=== PATIENT | male | born 1975 | race Caucasian/White ===

== ENCOUNTER → 2016-11-03 | Outpatient (REF) | payer OTHER | LOC: M SMT 16:47 | PROVIDERS: ATTEND Nurse Practitioner Women's Health | DX: R35.0 Frequency of micturition (principal) | CPT/HCPCS: 81001; 87086; G0463 ==

== ENCOUNTER → 2016-11-10 | Outpatient (CLI) | payer OTHER ==
[~2016-11-10] MED LIST: GASTROGRAFIN SOLUTION 30ML (Q9963) As Ordered ONE; ISOVUE-370 76% 100ML VIAL (Q9967) As Ordered ONE
--- NOTE | 2016-11-10 19:20 | REP ---
CT study of the abdomen and pelvis without and with IV contrast: With oral contrast: History: Low back pain and groin pain. CT contrast dose: 100 mL of Isovue-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 Axial CT images demonstrate that the lung bases are clear. There is no evidence of pleural effusion or upper abdominal ascites. There is a cyst in the left lobe of the liver measuring 1.5 cm in greatest diameter. A smaller cyst is seen a little more superiorly in the left lobe of the liver 0.8 cm in greatest diameter. No other focal liver lesion is seen. There is an accessory splenule inferior and anterior to the spleen. No other splenic abnormality is seen. No adrenal lesion is observed. No pancreatic or gallbladder abnormality is seen. The kidneys enhance symmetrically and are morphologically intact on pre and postcontrast images. No evidence of nephrolithiasis, hydronephrosis, or renal mass lesion. No retroperitoneal mass or adenopathy is observed. Small and large intestinal bowel loops are normal in the abdomen and pelvis. Urinary bladder is intact. Prostate and seminal vesicles are unremarkable. No pelvic mass or adenopathy is seen. Bone window settings show no bony destructive lesion. Synovial inclusion cyst is seen in the left femoral neck. Impression: Simple cysts in the left lobe of the liver. Otherwise unremarkable CT study of the abdomen and pelvis without and with IV contrast. Signed by Derik Patel MD 11/10/2016 07:47 P
== END ==
LOC: M RAD 15:23
PROVIDERS: ATTEND Nurse Practitioner Women's Health
DX: R10.30 Lower abdominal pain, unspecified (principal); M54.5 Low back pain; K76.89 Other specified diseases of liver
CPT/HCPCS: 74178; Q9963; Q9967

== ENCOUNTER → 2017-05-20 | Outpatient (REF) | payer OTHER ==
[~2017-05-20] MED LIST changes: +FLOM5CAP PO; -GASTROGRAFIN SOLUTION 30ML (Q9963) As Ordered ONE; -ISOVUE-370 76% 100ML VIAL (Q9967) As Ordered ONE; +REFR0.1D OU
== END ==
LOC: M SMT 12:52
PROVIDERS: ATTEND Urology
DX: N41.1 Chronic prostatitis (principal)
CPT/HCPCS: 51798; 81001; 87086; G0463

== ENCOUNTER → 2017-06-01 | Outpatient (CLI) | payer OTHER ==
--- NOTE | 2017-06-02 07:32 | REP ---
Clinical: History of benign prostatic hypertrophy. Technique: Real time hinojosa scale ultrasound examination using curved array transducer. Findings: Prevoid bladder appears normal and without wall thickening or mass lesion measuring 342 ml. Bilateral ureteral jets noted. Prostate gland is heterogeneous and measures 3.6 x 4.1 x 4.0 cm (36 ml). Impression: 1. Normal appearance of the bladder. 2. Mild prostatic hypertrophy. Signed by Suleiman Bonilla MD 06/02/2017 07:24 A
== END ==
LOC: M SMT 13:00
PROVIDERS: ATTEND Urology
DX: N40.1 Benign prostatic hyperplasia with lower urinary tract symptoms (principal)

== ENCOUNTER → 2017-08-06 | Outpatient (CLI) | payer OTHER ==
[2017-08-06 14:53] LABS: MEAN CORPUSCULAR HEMOGLOBIN 30.6 pg (27.0-33.0); MEAN CORPUSCULAR HGB CONC 35.7 g/dl (32.0-36.5); MEAN CORPUSCULAR VOLUME 85.7 fl (80.0-96.0); PLATELET COUNT, AUTOMATED 197 10^3/uL (150-450); RED CELL DISTRIBUTION WIDTH 11.9 % (11.5-14.5); WHITE BLOOD COUNT 7.2 10^3/uL (4.0-10.0)
[2017-08-06 15:04] LABS: INR 0.96
[2017-08-06 15:21] LABS: ANION GAP 7 MEQ/L (8-16); BLOOD UREA NITROGEN 15 MG/DL (7-18); CALCIUM LEVEL 8.4 MG/DL (8.5-10.1); CARBON DIOXIDE LEVEL 29 MEQ/L (21-32); CHLORIDE LEVEL 106 MEQ/L (98-107); CREATININE FOR GFR 1.25 MG/DL (0.70-1.30); GLOMERULAR FILTRATION RATE > 60.0 (>60); GLUCOSE, FASTING 83 MG/DL (70-105); POTASSIUM SERUM 4.3 MEQ/L (3.5-5.1); SODIUM LEVEL 142 MEQ/L (136-145)
== END ==
LOC: M SMT 11:28
PROVIDERS: ATTEND Urology
DX: N40.1 Benign prostatic hyperplasia with lower urinary tract symptoms (principal)

== ENCOUNTER 2017-08-13 08:53 | Day surgery (SDC) | payer OTHER ==
[~2017-08-13] VITALS: Ht 172.7 cm; Wt 87.5 kg
[2017-08-13] MEDS ORDERED: LR 1,000 ML IV ONE (09:00)
[2017-08-13] MEDS ORDERED: PROPOFOL 200 MG/20 ML VIAL As Ordered ONE (10:44)
[2017-08-13] MEDS ORDERED: LIDOCAINE 2% INJ 100 MG/5 ML SDV (FOR ANES.) As Ordered ONE (10:44)
[2017-08-13] MEDS ORDERED: MIDAZOLAM INJ 2 MG/2 ML VIAL (J2250) As Ordered ONE (10:46)
[2017-08-13] MEDS ORDERED: fentaNYL 100 MCG/2 ML INJECTION (J3010) As Ordered ONE (10:47)
[2017-08-13] MEDS ORDERED: LIDOCAINE 2% 5ML JELLY UROJET As Ordered ONE (11:17)
[2017-08-13] MEDS ORDERED: CIPR500T3 PO (12:01)
[2017-08-13] MEDS ORDERED: TYLE650T35 PO (12:01)
[2017-08-13 12:45] VITALS: BP 133/89
[2017-08-13] MEDS ORDERED: METOCLOPRAMIDE INJ 10MG/2ML VIAL (J2765) IV PRN (12:45)
[2017-08-13] MEDS ORDERED: LR 1,000 ML IV SCH (12:45)
[2017-08-13] MEDS ORDERED: ONDANSETRON 4MG/2ML VIAL (J2405) IV PRN (12:45)
[2017-08-13] MEDS ORDERED: MEPERIDINE INJ 25 MG/ML VIAL (J2175) IV PRN (12:45)
[2017-08-13] MEDS ORDERED: PERCOCET 5MG/325MG TAB PO PRN (12:45)
[2017-08-13] MEDS ORDERED: fentaNYL 100 MCG/2 ML INJECTION (J3010) IV PRN (12:45)
--- NOTE | 2017-08-14 09:46 | RO ---
DATE OF PROCEDURE: 08/13/2017 PREPROCEDURE DIAGNOSIS: Benigni prostatic hypertrophy with urine obstruction plus lower urinary tract symptoms (LUTS). POSTPROCEDURE DIAGNOSIS: Benigni prostatic hypertrophy with urine obstruction plus lower urinary tract symptoms (LUTS). PROCEDURE: UroLift prostatic urethral lift. A total of four implants. SURGEON: Dr. Brian Morales. GLASS MOULD CLEANER: ANESTHESIA: MAC COMPLICATIONS: None. ESTIMATED BLOOD LOSS: Minimal. INDICATION: This is a 41-year-old male patient that has lower urinary tract symptoms due to benign prostatic hypertrophy. The patient has consented for a cystoscopy plus UroLift prostatic urethral lift implant after failing medical therapy. DESCRIPTION OF PROCEDURE: The patient under MAC anesthesia in the supine modified low lithotomy position, after prepping and draping the area of concern which included the entire genitalia and abdomen. We started by introducing a total of 10 mL of lidocaine gel urojet through the urethra. We waited for 10 minutes and then proceeded to do a formal cystoscopy with a #20-Thai cystoscope that was inserted into the bladder. The fossa navicularis, penile urethra, bulbar urethra and membranous urethra and prostatic urethra were totally normal. The bladder had no tumors. No stones. No foreign objects. Both ureteral orifices were seen excreting clear urine. The cystoscope bridge was replaced with the UroLift delivery device. The first treatment site was the patient's left side. Approximately 2 cm distal to the bladder neck, the distal tip of the delivery device was then angled laterally approximately 20 degrees at this position to compress the lateral lobe at 3 -o'clock position. The trigger was pulled, thereby deploying a needle containing the implant through the prostate. The needle was then retracted allowing one end of the implant to be positioned and delivered to the capsular surface of the prostate. The implant was then tensioned to assure capsular seating and removal of the slack monofilament. The device was then angled back toward the midline and slowly advanced proximally typically 3-4 mm until cystoscopic verification of the monofilament being centered into the delivery bay. The urethral end piece was affixed to the monofilament thereby tailoring the size of the implant. Excess filament was then severed. The delivery device was then advanced into the bladder. The delivery device was then replaced with a cystoscope and bridge and the implant location and opening affect was confirmed cystoscopically. The same procedure was then performed on the right side at 9 -o'clock position. Two additional implants were delivered just proximal tot he verumontanum. Again, one on the right and one on the left of the prostate. This time at 10 and 2 -o'clock positions following the same technique. Cystoscopy then revealed no persistent area of obstruction and there was no need for delivering more implants. At that moment, a final cystoscopy was conduced first to inspect the location and state of each implant, and second to confirm the presence of a continuous anterior channel that was present throughout the prostatic urethra with irrigation flow turned off. The bladder was then filled with 150 mL irrigation fluid to assist the patient in a voiding trial after the procedure and all the instruments were removed. The patient was then passed to recovery room. There was no Pizano catheter placed. PLAN: The patient passed into recovery room. He will go home after voiding and verifying with the bladder scan that he has emptied his bladder. He will go home with ciprofloxacin 500 mg one tablet by mouth twice a day for 10 days and he will have Tylenol 650 mg extended relief one tablet by mouth every 8 hours as needed for pain. He will followup at [facility] in about 2 weeks.
== END 2017-08-13 12:55 | disposition home or self-care (01) ==
LOC: M SDC 08:53
PROVIDERS: ATTEND Urology
DX: N40.1 Benign prostatic hyperplasia with lower urinary tract symptoms (principal); G47.30 Sleep apnea, unspecified
CPT/HCPCS: 36415; 52441; 52442; 86850; 86900; 86901; J0690; J2250; J3010; L8699

== ENCOUNTER → 2017-08-27 | Outpatient (REF) | payer OTHER ==
[~2017-08-27] MED LIST changes: +CIPR500T3 PO; +TYLE650T35 PO
== END ==
LOC: M SMT 12:47
PROVIDERS: ATTEND Nurse Practitioner Women's Health
DX: N40.1 Benign prostatic hyperplasia with lower urinary tract symptoms (principal)

== ENCOUNTER → 2017-10-01 | Outpatient (REF) | payer OTHER ==
[2017-10-01 12:16] LABS: APPEARANCE, URINE CLEAR (CLEAR); BACTERIA, URINE AUTO NEGATIVE (NEGATIVE); BILIRUBIN, URINE AUTO NEGATIVE (NEGATIVE); BLOOD, URINE BLOOD NEGATIVE (NEGATIVE); COLOR, URINE YELLOW (YELLOW); GLUCOSE, URINE (UA) AUTO NEGATIVE (NEGATIVE); KETONE, URINE AUTO NEGATIVE (NEGATIVE); LEUKOCYTE ESTERASE, URINE AUTO NEGATIVE (NEGATIVE); MUCUS, URINE SMALL (NEGATIVE); NITRITE, URINE AUTO NEGATIVE (NEGATIVE); PROTEIN, URINE AUTO NEGATIVE (NEGATIVE); RBC, URINE AUTO 0 /HPF (0-3); SPECIFIC GRAVITY URINE AUTO 1.009 (1.002-1.035); SQUAMOUS EPITHELIAL CELL UR AU 0 /HPF (0-6); UROBILINOGEN, URINE AUTO 0.2 mg/dL (0.0-2.0); WBC, URINE AUTO 1 /HPF (0-3)
== END ==
LOC: M SMT 11:42
DX: N40.1 Benign prostatic hyperplasia with lower urinary tract symptoms (principal)

== ENCOUNTER → 2018-09-22 | Outpatient (REF) | payer OTHER ==
[~2018-09-22] MED LIST changes: +FLOM0.4C39 PO; -FLOM5CAP PO
[2018-09-22 13:44] LABS: APPEARANCE, URINE CLEAR (CLEAR); BACTERIA, URINE AUTO NEGATIVE (NEGATIVE); BILIRUBIN, URINE AUTO NEGATIVE (NEGATIVE); BLOOD, URINE BLOOD NEGATIVE (NEGATIVE); COLOR, URINE YELLOW (YELLOW); GLUCOSE, URINE (UA) AUTO NEGATIVE (NEGATIVE); KETONE, URINE AUTO NEGATIVE (NEGATIVE); LEUKOCYTE ESTERASE, URINE AUTO NEGATIVE (NEGATIVE); MUCUS, URINE SMALL (NEGATIVE); NITRITE, URINE AUTO NEGATIVE (NEGATIVE); PROTEIN, URINE AUTO NEGATIVE (NEGATIVE); RBC, URINE AUTO 0 /HPF (0-3); SPECIFIC GRAVITY URINE AUTO 1.014 (1.002-1.035); SQUAMOUS EPITHELIAL CELL UR AU 0 /HPF (0-6); UROBILINOGEN, URINE AUTO 0.2 mg/dL (0.0-2.0); WBC, URINE AUTO 1 /HPF (0-3)
== END ==
LOC: M SMT 13:03
PROVIDERS: ATTEND Nurse Practitioner Women's Health
DX: R35.0 Frequency of micturition (principal)
CPT/HCPCS: 81001; 87086; G0463

== ENCOUNTER → 2018-10-26 | Outpatient (CLI) | payer OTHER | LOC: M SMT 08:26 | PROVIDERS: ATTEND Nurse Practitioner Women's Health | DX: Z12.5 Encounter for screening for malignant neoplasm of prostate (principal) ==

== ENCOUNTER → 2020-11-06 | Outpatient (CLI) | payer OTHER ==
[~2020-11-06] MED LIST changes: +ACET650T61 PO; +CHOL100029 PO; +GOOD200C PO; +LANS30CA PO; -TYLE650T35 PO
--- NOTE | 2020-11-06 08:45 | REP ---
INDICATION: ABNORMAL LIVER FUNCTION COMPARISON: None. TECHNIQUE: Real time hinojosa scale ultrasound examination using curved array transducer. FINDINGS: Liver is hyperechoic and mildly enlarged measuring 19 cm in craniocaudal length. There is a 2.2 x 2.2 x 2.0 cm anechoic structure in the left lobe representing simple hepatic cyst based on sonographic characteristics and correlation with CT dated 2016. Pancreas is incompletely evaluated due to interposed bowel gas but visualized portions appear normal. The gallbladder is normal and without gallstones, wall thickening, or pericholecystic fluid. No biliary ductal dilatation is appreciated and the common bile duct measures 5.0 mm diameter. Right kidney is normal in reniform shape without hydronephrosis and measures 9.9 x 6.3 x 5.7 cm. No ascites in the visualized right upper quadrant. IMPRESSION: 1. Mild hepatomegaly with hepatosteatosis and 2.2 cm benign-appearing hepatic cyst slightly enlarged, but essentially unchanged in appearance when compared to CT dated 11/10/2016. <Electronically signed by Suleiman Bonilla > 11/06/20 [id number]
== END ==
LOC: M RAD 07:33
PROVIDERS: ATTEND Physician Assistant Medical
DX: R16.0 Hepatomegaly, not elsewhere classified (principal); K76.0 Fatty (change of) liver, not elsewhere classified; K76.89 Other specified diseases of liver; R79.89 Other specified abnormal findings of blood chemistry